=== PATIENT | female | born 1965 | race Asian ===

== ENCOUNTER 2019-03-12 08:26 | Emergency (ER) | payer SELFPAY ==
[~2019-03-12] VITALS: Ht 162.6 cm; Wt 63.5 kg
[2019-03-12] MEDS ORDERED: KETOROLAC TROMETHAMINE 30 MG/ML VIAL IV STA (08:43)
[2019-03-12] MEDS ORDERED: SODIUM CHLORIDE 0.9% 1000ML 1,000 ML IV STA ×2 (08:43→10:19)
[2019-03-12] MEDS ORDERED: ONDANSETRON HCL INJ 2MG/ML 2ML 2 MG/ML VIAL ONE (09:18)
[2019-03-12] MEDS ORDERED: SODIUM CHLORIDE 0.9% 1000ML 1,000 ML ONE ×2 (09:19→10:27)
[2019-03-12] MEDS ORDERED: KETOROLAC TROMETHAMINE 30 MG/ML VIAL ONE (09:19)
[2019-03-12] MEDS ORDERED: ONDANSETRON HCL INJ 2MG/ML 2ML 2 MG/ML VIAL IV ONE (09:30)
[2019-03-12] MEDS ORDERED: CEFTRIAXONE SOD 1 GM/NS 50 ML 50 ML IV ONE (10:15)
[2019-03-12] MEDS ORDERED: ZOFRAN4 MG SL (10:31)
[2019-03-12] MEDS ORDERED: CEFDINIR300 MG PO (10:31)
[2019-03-12] MEDS ORDERED: ULTRAM50 MG PO (10:31)
[2019-03-12 10:35] VITALS: BP 117/60
== END 2019-03-12 11:06 | disposition home or self-care (01) ==
LOC: FSED 08:26
DX: M54.5 Low back pain (principal); N10 Acute pyelonephritis; N39.0 Urinary tract infection, site not specified; R31.9 Hematuria, unspecified
CPT/HCPCS: 80053; 81003; 85025; 87400; 99283; J0696; J1885; J2405; J7030

== ENCOUNTER 2020-01-22 13:08 | Emergency (ER) | payer OTHER ==
[~2020-01-22] VITALS: Ht 160 cm; Wt 68.0 kg
[~2020-01-22 13:08] MED LIST: CEFDINIR300 MG PO; ULTRAM50 MG PO; ZOFRAN4 MG SL
--- OUTSIDE RECORDS SUMMARY | 2020-01-22 13:58 | XMS REPORT | Continuity of Care Document ---
Author Author [facility] Organization [facility] Address [address] [place] [address] Phone Unavailable Care Team Providers Care Child Psychometrist Name Role Phone NO, PCP PCP Unavailable Problems This patient has no known problems. Allergies, Adverse Reactions, Alerts This patient has no known allergies or adverse reactions. Medications Ordered Medication Name Filled Medication Name Start Date Stop Da te Current Medication? Ordering Clinician Indication Dosage Frequency Signature (SIG) Comments Components Source Cefdinir (Omnicef) 300 Mg Capsule Cefdinir (Omnicef) 300 Mg Capsule 2019-03-12 00:00:00 Yes [facility] 300 Twice A Day [facility] Ondansetron Hcl (Zofran*) 4 Mg Tablet Ondansetron Hcl (Zofra n*) 4 Mg Tablet 2019-03-12 00:00:00 Yes Casey [facility]oo [facility] 4 Every 6 Hours as needed for Nausea [facility] Tramadol Hcl (Ultram) 50 Mg Tablet Tramadol Hcl (Ultram) 50 Mg Tablet 2019-03-12 00:00:00 Yes Casey Boo [facility] 50 E very 6 Hours as needed for Mild Pain (1-3) Or Fever>100.8 [facility] Procedures This patient has no known procedures. Encounters Start Date/Time End Date/Time Encounter Type Admission Type [facility] Care Department Encounter ID Source 2019-03-12 08:26:00 2019-03-12 11:06:00 Departed Emergency Room [facility] [id number] [facility] Results This patient has no known results.
--- NOTE | 2020-01-22 14:40 | Emergency Department Note ---
History of Present Illnes History of Present Illness Chief Complaint: Back Pain History of Present Illness This is a 55 year old female, with history of hypertension hyperlipidemia, who presents with a 2 day history of right-sided low back pain that radiates into the right buttocks. Pain does not radiate into the lower extremity, there is no numbness, tingling, or lower extremity weakness. Patient's daughter, translated [place], at her mother's request. Patient apparently had similar symptoms nearly a year ago, was seen here, and diagnosed with urinary tract infection. Patient has had no further symptoms until 2 days ago. She denies any dysuria, frequency, urgency, fever, chills, nausea, or vomiting. Patient has recently assisted with moving furniture in her apartment, and she has also recently returned to work as a manicurist. Patient states that she did not lift any furniture, she just minimally assisted others, in the moving effort. She has been taking Tylenol for the pain, without relief of her symptoms. She has also taken some ibuprofen, which offered temporary relief. Historian: Patient Arrival Mode: Car Additional Treatment BUSINESS CASE ANALYST: tylenol and pyridium History limited by: language barrier Director Of Training Required: Yes (Patient's adult daughter translated;) Onset (how long ago): day(s) (2) Location: right sided low back Quality: aching, sharp stabbing; Radiation: Reports back Severity: moderate Onset quality: sudden Duration (how long): day(s) (2) Timing of current episode: constant Progression: worsening Chronicity: recurrent (though this episode seems more severe;) Context: Denies recent illness, Denies recent surgery, Denies trauma/injury Relieving factors: none Exacerbating factors: movement Associated symptoms: Denies chest pain, Denies cough, Denies diaphoresis, Denies fever/chills, Denies headaches, Denies loss of appetite, Denies nausea/vomiting Treatments prior to arrival: NSAID, other (Tylenol) Past Medical/Family History Physician Review I have reviewed the patient's past medical and family history. Any updates have been documented here. 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 Social History Smoking Cessation: Former smoker Counseling Performed: No Alcohol Use: Occasional Any Illegal Drug Use: No TB Exposure/Symptoms: No Physically hurt or threatened: No Family History Family history of heart diseas: No Other Last Tetanus: UNKNOWN Any Pre-Existing Lines (PICC,: No Is patient up to date on immun: No Review of Systems Review of Systems Constitutional: Denies chills, Denies fever EENTM: Reports no symptoms Cardiovascular: Denies chest pain, Denies edema Respiratory: Denies cough, Denies dyspnea Gastrointestinal: Denies diarrhea, Denies nausea, Denies vomiting Genitourinary: Denies dysuria, Denies frequency Musculoskeletal: Reports back pain, Reports muscle pain; Denies joint swelling, Denies neck pain Integumentary: Denies change in color, Denies rash Neurological: Denies headache, Denies numbness, Denies paresthesia, Denies weakness Psychological: Reports no symptoms Hematological/Lymphatic: Reports no symptoms Review of other systems: All other systems negative Physical Exam Related Data Allergies: Coded Allergies: No Known Allergies (Unverified , 03/12/19) Triage Vital Signs Vital Signs Date Time Temp Pulse Resp B/P (MAP) Pulse Ox O2 Delivery O2 Flow Rate FiO2 01/22/20 13:20 100.3 70 16 158/94 97 Room Air Vital signs reviewed: Yes Physical Exam CONSTITUTIONAL Constitutional: Present well-developed, Present well-nourished, Present ill appearing (appears uncomfortable;); Absent distressed HENT HENT: Present normocephalic, Present atraumatic, Present oropharynx clear/moist, Present nose normal HENT L/R: Present left ext ear normal, Present right ext ear normal EYES Eyes: Reports PERRL, Reports conjunctivae normal NECK Neck: Present ROM normal PULMONARY Pulmonary: Present effort normal, Present breath sounds normal CARDIOVASCULAR Cardiovascular: Present regular rhythm, Present heart sounds normal, Present capillary refill normal, Present normal rate GASTROINTESTINAL GENITOURINARY Genitourinary: Present exam deferred SKIN Skin: Present warm, Present dry; Absent rash MUSCULOSKELETAL Musculoskeletal: Present tenderness (mld ttp of right lumbar paraspinal muscles and right sciatic notch; no lumbar veterbral point tendernss) NEUROLOGICAL PSYCHOLOGICAL Psychological: Present mood/affect normal, Present judgement normal Results Laboratory Laboratory UA - Negative UPT - Negative Lab results reviewed: Yes Assessment & Plan Medical Decision Making MDM - No sign of a UTI on UA or exam. - Alternate ice and heat to the area of pain in your back, for 15 - 20 minutes at a time, while awake. - Follow-up with your PCP, if your back pain persists despite taking this medication. You may need an MRI of the L-spine. - Do NOT lift anything more than 10 pounds, until pain has subsided. Assessment & Plan Final Impression: (1) Low back pain (2) Muscle spasm of back (3) Hypertension (4) Hyperlipidemia Depart Disposition: HOME, SELF-CARE Last Vital Signs Date Time Temp Pulse Resp B/P (MAP) Pulse Ox O2 Delivery O2 Flow Rate FiO2 01/22/20 13:20 100.3 70 16 158/94 97 Room Air Home Meds Active Scripts Tramadol Hcl (ULTRAM) 50 Mg Tablet, 1-2 MG PO Q6H PRN for pain, #20 TAB 0 Refills Do NOT take and drive or operate machiney. Prov:JASPAL FERNANDEZ MD 01/22/20 Methocarbamol (METHOCARBAMOL) 750 Mg Tablet, 1-2 TAB PO TID PRN for muscle spasm, #20 TAB 0 Refills Prov:JASPAL FERNANDEZ MD 01/22/20 Prednisone (PREDNISONE) 20 Mg Tab, 50 MG PO DAILY for pain and inflammation for 7 Days, #7 TAB 0 Refills Prov:JASPAL FERNANDEZ MD 01/22/20 Tramadol Hcl (ULTRAM) 50 Mg Tablet, 50 MG PO Q6H PRN for Mild Pain (1-3) or Fever>100.8 for 3 Days, #14 TAB Prov:ROGERS DOVE MD 03/12/19 Ondansetron Hcl* (ZOFRAN*) 4 Mg Tablet, 4 MG SL Q6H PRN for NAUSEA, #14 MG 0 Refills Prov:ROGERS DOVE MD 03/12/19 Cefdinir (OMNICEF) 300 Mg Capsule, 300 MG PO BID for 7 Days Prov:ROGERS DOVE MD 03/12/19 JASPAL FERNANDEZ MD Jan 22, 2020 14:39
[2020-01-22] MEDS ORDERED: PREDNISONE20 MG PO (14:41)
[2020-01-22] MEDS ORDERED: METHOCARBAMOL750 MG PO (14:43)
[2020-01-22] MEDS ORDERED: ULTRAM50 MG PO (14:44)
[2020-01-22 14:58] VITALS: BP 160/84
== END 2020-01-22 14:55 | disposition home or self-care (01) ==
LOC: FSED 13:27
DX: M54.5 Low back pain (principal); M62.830 Muscle spasm of back; X50.0XXA Overexertion from strenuous movement or load, initial encounter; X50.1XXA Overexertion from prolonged static or awkward postures, initial encounter; Y93.E6 Activity, residential relocation; Y92.008 Other place in unspecified non-institutional (private) residence as the place of occurrence of the external cause; I10 Essential (primary) hypertension; E78.5 Hyperlipidemia, unspecified
CPT/HCPCS: 81003; 81025; 99283